=== PATIENT | male | born 1960 | race Caucasian/White ===

== ENCOUNTER 2022-10-13 12:31 | Outpatient (AMB) | payer OTHER, SELFPAY ==
[2022-10-13 12:37] VITALS: BP 132/60; PULSE 80; O2SAT 98
--- NOTE | 2022-10-13 12:37 | A.OFFPC_ITS ---
Vital Signs 10/13/22 12:37 BMI Reason not done Patient refused/unable BP 132/60 Blood Pressure Location Lt brachial Position Sitting Pulse 80 Pulse Source Pulse Oximeter Pulse Oximetry (%) 98 Oxygen Delivery Method Room Air Intake Visit Reasons: New patient-Diabetes Allergies No Known Allergies Allergy (Verified 10/13/22 13:02) Medication List - Last Reconciled 10/13/22 by BENNIE Gonzales cyclobenzaprine 5 mg PO Q8H PRN evjftsv-vgs-cntfo-tenof alafen [phone] mg (Genvoya) 1 tab PO DAILY insulin glargine (Lantus U-100 Insulin) 30 units subcut QAM insulin lispro (Humalog U-100 Insulin) 30 units subcut TID torsemide 40 mg PO DAILY Tobacco use date assessed: 10/13/22 Dental Screening Dental Screen Date: 10/13/22 Did you have a dental visit in the last 12 months?: No Did you have a dental problem in the last 6 months where you did not have access to dental care?: No Was dental information given to patient?: Patient has dentist HPI HPI Comments History of Present Illness Details 62-year-old male new patient presents today to establish care. Past medical history significant for diabetes mellitus, hypercholesteremia, HIV, cirrhossiss. Patient is a poor historian who reports today with his healthcare proxy the has some knowledge of his medical conditions. Healthcare proxy reports that patient has been in a wheelchair x1 year as he has history of a CVA with left-sided residual and developed bacteremia settled in his right hip joint, patient reports had hip surgery and right knee surgery to screen the infection out. and since admitted for that has unable to walk and has not been able that set up with physical therapist as he has not had a primary care provider. Patient was admitted at [facility], D/C Summary. Patient also wears a left leg AFO brace. Patient also reports been taking his Lantus 30 units in the morning and his short-acting 30 units in am and with meals, Humalog 30 units at night. Patient educated that Lantus is the long-acting insulin should be taking 30 units at night and Humalog is ordered 30 units t.i.d. with meals. Refills sent on this medication. Patient also reports on lactulose for liver cirrhosis however he does not know the dose of this or frequency. Patient advised to call office dose and frequency of lactulose of this can be sent to his pharmacy. 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 Pearl; Dr. Steinberg; records to be requested. Patient currently pain for hospital bed on a pocket, would like order for 1 to be sent to [facility] [place]. PAtient also requesting raised toilet seat with handles [facility] Medical History (Updated 10/13/22 @ 13:22 by BENNIE Gonzales) CVA (cerebral vascular accident) Surgical History (Updated 10/13/22 @ 13:10 by BENNIE Gonzales) H/O total hip arthroplasty Family History Mother No problems noted. Father No problems noted. Social History (Updated 10/13/22 @ 13:13 by BENNIE Gonzales) Housing: House Alcohol intake: never Patient Tobacco Use Status: Never used Tobacco e-Cigarette/Vaping Use: Never Used Second Hand Smoke Exposure: No Current occupational status: disabled Cognitive needs: No Hearing needs: No Vision needs: Yes Questionnaire PHQ-9 Over the last 2 weeks, how often have you been bothered by any of the following problems? 1. Little interest or pleasure in doing things: not at all 2. Feeling down, depressed, or hopeless: not at all 3. Trouble falling or staying asleep, or sleeping too much: not at all 4. Feeling tired or having little energy: not at all 5. Poor appetite or overeating: not at all 6. Feeling bad about yourself - or that you are a failure or have let yourself or your family down: not at all 7. Trouble concentrating on things, such as reading the newspaper or watching television: not at all 8. Moving or speaking so slowly that other people could have noticed. Or the opposite - being so fidgety or restless that you have been moving around a lot more than usual: not at all 9. Thoughts that you would be better off or of hurting yourself in some way: not at all Total score: 0 Depression Screening Interpretation: Negative Source: Developed by Drs. Ishan Peoples, Alexa Prakash, Gerardo Wahl and colleagues, with an educational jason from [employer]. Thrive Questionnaire Date Thrive assessed: 10/13/22 I am a: Patient What is your living situation today?: I have a steady place to live Within the past 12 months, did the food you bought not last and you didn't have the money to get more?: Never true Within the past 12 months, did you worry whether your food would run out before you got money to buy more?: Never true Do you have trouble paying for medicines?: No Do you have trouble getting transportation to medical appointments?: No Do you have trouble paying your heating and electricity bill?: No Do you have trouble taking care of your child, family member or friend?: No Do you have trouble with day-to-day activities such as bathing, preparing meals, shopping, managing finances, etc.?: No Are you currently unemployed and looking for a job?: No Are you interested in more education?: No Currently or been in a relationship where the following occur: no concerns reported AUDIT C Alcohol Use Questionnaire (AUDIT-C) 1. How often do you have a drink containing alcohol?: Never 2. How many drinks containing alcohol do you have on a typical day when you are drinking?: 1 or 2 3. How often do you have six or more drinks on one occasion?: Never Total Score: 0 SEPIDEH-7 AMB Questionnaire SEPIDEH-7 Date SEPIDEH - 7 assessed: 10/13/22 Feeling nervous, anxious, or on edge: 1 = Several days Not being able to stop or control worryin = Not at all Worrying too much about different things: 0 = Not at all Trouble relaxin = Not at all Being so restless that it is hard to sit still: 0 = Not at all Becoming easily annoyed or irritable: 0 = Not at all Feeling afraid as if something awful might happen: 0 = Not at all Total SEPIDEH-7 score (0-4 normal; 5-9 mild; 10-14 moderate; 15-21 severe): 1 Source: Developed by Alexa Amaya Kurt Kroenke and colleagues, with an educational jason from [employer]. Review of Systems Const Denies chills, Denies fatigue, Denies fever(s) and Denies poor appetite Eyes Denies no additional complaints ENT Reports Normal hearing present Card Denies chest pain, Denies syncope, Denies rapid heart rate and Denies dyspnea Resp Denies cough and Denies dyspnea GI Denies change in stool character, Denies constipation, Denies diarrhea, Denies nausea and Denies vomiting Denies dysuria, Denies urinary frequency and Denies urinary urgency Neuro Reports Normal hearing present, Denies confusion and Denies syncope Psych Denies confusion Endo Denies fatigue Physical exam (Primary Care) Vital Signs: Last Vital Signs Pulse 80 10/13/22 12:37 BP 132/60 10/13/22 12:37 Pulse Ox 98 10/13/22 12:37 Oxygen Delivery Method Room Air 10/13/22 12:37 Tobacco/Smoking Status: Tobacco use Status Tobacco use date assessed 10/13/22 10/13/22 12:51 Patient Tobacco Use Status Never used Tobacco 10/13/22 13:13 e-Cigarette/Vaping Use Never Used 10/13/22 13:13 PHQ-9: PHQ-9 Score PHQ-9: Total score 0 10/13/22 13:01 Depression Screening Interpretation: Negative Thrive Assessment: Date of Thrive Assessment Date Thrive assessed 10/13/22 10/13/22 12:51 Currently or been in a relationship where the following occur: no concerns reported Const General: No confusion Orientation/consciousness: No confusion HENMT Head: Yes normocephalic and Yes atraumatic Eyes Conjunctivae: conjunctivae normal Chest Chest palpation & inspection: normal inspection of the chest Resp Effort & Inspection: normal respiratory effort Auscultation: clear to auscultation bilaterally, no crackles, no rhonchi and no wheezes Cardio Rate: regular rate Rhythm: regular rhythm Heart sounds: S1 normal heart sound present and S2 normal heart sound present GI Inspection: Yes normal to inspection Neuro General: No confusion Cranial nerves: Yes Normal hearing present Extrem General: No edema Results AMB Hemoglobin A1c AMB Hemoglobin A1c 5.3 % Last Edit by Carmen Phoenix CMA on 10/13/22 13 :01 Results Reviewed Results Reviewed: Laboratory Last Values Hgb A1c (Clinic) 5.3 % (4.0-6.0) 10/13/22 13:01 Assessment and Plan Assessment & Plan (1) HIV disease: Code(s): B20 - Human immunodeficiency virus [HIV] disease Plan: Continue on Genvoya. (2) Cirrhosis: Code(s): K74.60 - Unspecified cirrhosis of liver Plan: Patient to call office with lactulose dose and frequency for refill to be sent to his pharmacy. (3) Hypercholesteremia: Code(s): E78.00 - Pure hypercholesterolemia, unspecified Plan: Fasting lipid panel order. Patient reports being on a statin in the past. (4) Diabetes mellitus: Code(s): E11.9 - Type 2 diabetes mellitus without complications Plan: Patient advised to take Humalog 30 units t.i.d. with meals and Lantus 30 units at night. Fasting glucose and hemoglobin A1c ordered. Plan Follow-up in 2 months. Orders: Orders Comprehensive [place]. Panel Fast Today E11.9 - Type 2 diabetes mellitus without complications Hemoglobin A1c Today E11.9 - Type 2 diabetes mellitus without complications Lipid Panel Today Z13.220 - Encounter for screening for lipoid disorders TSH reflex Free T4 Today Z13.29 - Encounter for screening for other suspected endocrine disorder Complete Blood Count Auto Diff Today Z13.0 - Encounter for screening for diseases of the blood and blood-forming organs and certain disorders involving the immune mechanism AMB Hemoglobin A1c Today Z13.9 - Encounter for screening, unspecified Medications: New insulin glargine (Lantus U-100 Insulin) 30 units (0.3 mL) subcut QAM 10 mL 0RF insulin lispro (Humalog U-100 Insulin) 30 units (0.3 mL) subcut TID 15 mL 0RF torsemide 40 mg (2 x 20 mg) PO DAILY 60 tabs 0RF Coding Level of Care Code New Pt Level 4 (80357) Diagnoses HIV disease B20 Cirrhosis K74.60 Hypercholesteremia E78.00 Diabetes mellitus E11.9
== END 2022-10-13 13:31 | disposition home or self-care (01) ==
PROVIDERS: PCP Nurse Practitioner Family; Visit Provider Nurse Practitioner Family
DX: B20 Human immunodeficiency virus [HIV] disease (principal); K74.60 Unspecified cirrhosis of liver; E11.9 Type 2 diabetes mellitus without complications; E78.00 Pure hypercholesterolemia, unspecified
CPT/HCPCS: 83036; 99204

== ENCOUNTER 2022-12-20 14:04 | Outpatient (AMB) | payer OTHER, SELFPAY ==
--- NOTE | 2022-12-20 14:05 | MHC.PC.OV ---
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 Allergies No Known Allergies Allergy (Verified 12/20/22 15:02) Medication List - Last Reconciled 12/20/22 by BENNIE Sheppard blood sugar diagnostic (Freestyle [employer]x strips) As directed blood-glucose meter (Freestyle [employer]x meter) As directed cyclobenzaprine 5 mg PO Q8H PRN ifjdwmo-hwf-hfoov-tenof alafen [phone] mg (Genvoya) 1 tab PO DAILY insulin glargine (Lantus U-100 Insulin) 15 units (0.15 mL) subcut QAM insulin lispro (Humalog KwikPen (U-100) Insulin) 15 units (0.15 mL) subcut TID lactulose 20 grams (30 mL) PO TID lancets (FreeStyle Lancets) As directed torsemide 40 mg (2 x 20 mg) PO DAILY Tobacco use date assessed: 12/20/22 HPI noncompliant, f/u rescheduled HPI Details Patient is a 62-year-old male who presents today for a routine follow-up. Patient of RADHA Terry, last visit 09/2022. Medical history significant for diabetes, hypercholesterolemia, HIV-followed by Dr. Terri HARRIS in [place] - reports recently had blood work done - will request records, cirrhosis-not always compliant with lactulose-reports lactulose sometime causes abdominal cramping-does not see GI-will refer to GI, history of CVA with left-sided weakness, chronic right hip pain - reports taking jrsy-kkq-fuvwdnu ibuprofen with minimal improvement. Patient not sure exactly what medications he takes, encouraged patient to check his home medications and then call office to update medication list. Does not check blood sugars at home, encouraged to monitor blood sugars at home periodically. Reports intermittent dry cough for the past 2 months which is not improving, did not try anything for this cough. 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 [facility] Medical History CVA (cerebral vascular accident) Surgical History H/O total hip arthroplasty Family History Mother No problems noted. Father No problems noted. Social History Housing: House Alcohol intake: never Patient Tobacco Use Status: Never used Tobacco e-Cigarette/Vaping Use: Never Used Second Hand Smoke Exposure: No Current occupational status: disabled Cognitive needs: No Hearing needs: No Vision needs: Yes Questionnaire Thrive Questionnaire Date Thrive assessed: 10/13/22 AUDIT C Alcohol Use Questionnaire (AUDIT-C) 1. How often do you have a drink containing alcohol?: Never 2. How many drinks containing alcohol do you have on a typical day when you are drinking?: 1 or 2 3. How often do you have six or more drinks on one occasion?: Never Total Score: 0 SEPIDEH-7 AMB Questionnaire SEPIDEH-7 Date SEPIDEH - 7 assessed: 10/13/22 Source: Developed by Drs. Ishan Peoples, Alexa Prakash, Gerardo Wahl and colleagues, with an educational jason from [employer]. Review of Systems Const Denies body aches, Denies chills, Denies fever(s) and Denies headache(s) ENT Denies dizziness, Denies otalgia, Denies headache(s), Denies nasal discharge, Denies sinus pain and Denies sore throat Card Denies chest pain, Denies edema, Denies lightheadedness and Denies dyspnea Resp Reports cough, Denies dyspnea and Denies wheezing GI Reports as per HPI, Denies abdominal pain, Denies constipation, Denies diarrhea, Denies nausea and Denies vomiting Denies dysuria Musc Denies myalgias Skin/Breast Denies rash Neuro Denies dizziness and Denies headache(s) Aller/Immun Denies wheezing Physical exam (Primary Care) Vital Signs: Last Vital Signs Pulse 86 12/20/22 14:06 BP 132/60 12/20/22 14:06 Pulse Ox 98 12/20/22 14:06 Oxygen Delivery Method Room Air 12/20/22 14:06 Tobacco/Smoking Status: Tobacco use Status Tobacco use date assessed 12/20/22 12/20/22 14:06 Patient Tobacco Use Status Never used Tobacco 12/20/22 14:06 e-Cigarette/Vaping Use Never Used 12/20/22 14:06 Thrive Assessment: Date of Thrive Assessment Date Thrive assessed 10/13/22 12/20/22 14:06 Const General: cooperative and no acute distress Orientation/consciousness: patient oriented x3 HENMT Head: Yes normocephalic and Yes atraumatic Face and sinus: Yes sinuses nontender Mouth: oropharynx normal and moist mucous membranes Throat: Yes posterior oropharynx normal Eyes General: appearance normal, both eyes and all related structures Neck Neck: Yes normal visual inspection and Yes full ROM Resp Effort & Inspection: normal respiratory effort and able to speak in complete sentences Auscultation: clear to auscultation bilaterally, no crackles, no rales, no rhonchi and no wheezes Cardio Rate: regular rate Rhythm: regular rhythm Heart sounds: S1 normal heart sound present and S2 normal heart sound present GI Palpation (GI): Soft to palpation, not firm, nontender, no guarding, not rigid and no hepatosplenomegaly Auscultation: normal bowel sounds Skin General skin exam: no rashes or lesions noted Neuro Other: Left-sided hemiplegia General: patient oriented x3 Extrem Other: LLE AFO brace General: No edema Assessment and Plan Assessment & Plan (1) Cough: Code(s): R05.9 - Cough, unspecified Plan: Lungs are clear Start benzonatate t.i.d. p.r.n. Notify office if no improvement after finishing treatment (2) Right hip pain: Code(s): M25.551 - Pain in right hip Plan: Will obtain x-ray Orthopedic referral Refill sent on cyclobenzaprine 5 mg every 8 hours p.r.n.-educated about drowsiness Patient also takes nolw-ggp-pmjgdgq ibuprofen p.r.n. he can take 400 mg every 8 hours as needed (3) Cirrhosis: Code(s): K74.60 - Unspecified cirrhosis of liver Plan: Encouraged compliance with lactulose GI referral for an evaluation and treatment (4) HIV disease: Code(s): B20 - Human immunodeficiency virus [HIV] disease Plan: Followed by infectious disease doctor Terri - patient reports he recently did have blood work done, will request On Genvoya (5) Hypercholesteremia: Code(s): E78.00 - Pure hypercholesterolemia, unspecified Plan: Patient reports that he is on cholesterol medication, does not remember the name, patient is to call with cholesterol medication name and dosage Patient is to complete blood work (6) Diabetes mellitus: Code(s): E11.9 - Type 2 diabetes mellitus without complications Plan: A1c 5.3 Patient reports that he is compliant with current insulins Lantus 15 units in the morning and lispro 15 units t.i.d. Encouraged to monitor blood sugars at home Low carbohydrate diet Plan Follow-up with PCP in 3 months or sooner as needed Orders: Orders Am[place]ia Today K74.60 - Unspecified cirrhosis of liver XR hip RT min 2V Today M25.551 - Pain in right hip Referrals Gastroenterology Referral K74.60 - Unspecified cirrhosis of liver Orthopedics Referral M25.551 - Pain in right hip Medications: New cyclobenzaprine 5 mg PO Q8H PRN 30 tabs 0RF muscle spasm M25.551 - Pain in right hip benzonatate 100 mg PO TID PRN 21 caps 0RF cough R05.9 - Cough, unspecified Coding Level of Care Code Est Pt Level 4 (08373) Diagnoses Cough R05.9 Right hip pain M25.551 Cirrhosis K74.60 HIV disease B20 Hypercholesteremia E78.00 Diabetes mellitus E11.9
[2022-12-20 14:06] VITALS: BP 132/60; PULSE 86; O2SAT 98
== END 2022-12-20 15:25 | disposition home or self-care (01) ==
PROVIDERS: PCP Nurse Practitioner Family; Visit Provider Nurse Practitioner Family
DX: K74.60 Unspecified cirrhosis of liver (principal); B20 Human immunodeficiency virus [HIV] disease; E78.00 Pure hypercholesterolemia, unspecified; E11.9 Type 2 diabetes mellitus without complications
CPT/HCPCS: 99214

== ENCOUNTER 2023-01-03 08:02 | Outpatient (REF) | payer OTHER, SELFPAY | END 2023-01-03 08:03 | disposition home or self-care (01) | LOC: HO.HOSX 08:02 | PROVIDERS: Visit Provider Orthopaedic Surgery | DX: Z13.89 Encounter for screening for other disorder (principal) ==

== ENCOUNTER 2023-01-03 13:23 | Outpatient (AMB) | payer OTHER, SELFPAY ==
--- NOTE | 2023-01-03 13:34 | MHC.OFFVIS ---
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 Patient reports that he has had pain in the right hip for about 1 year now. he explains that he had surgery in the right hip. This surgery was an I&D to clear out an infoection in the hip. He explains that he has pain in the lateral aspect of the right hip , this pain is described at a burning pain the radiates down the leg. No hx of back pain.. The patient states that he did suffer a fracture to his right hip which was surgically treated by Dr. Bacon from [facility]. He also underwent left total hip replacement surgery by Dr. Sutton from [facility] in [place]. The patient has chronic weakness on his left side after suffering from a cerebrovascular accident. Patient states that prior to his right hip infection he was able to get around with a cane. At this point the patient's right hip pain limits his mobility. He spends most of his time in a wheelchair. Allergies No Known Allergies Allergy (Verified 12/20/22 15:02) Medication List - Last Reconciled 01/03/23 by Rashid Farias MD benzonatate 100 mg PO TID PRN blood sugar diagnostic (Freestyle [employer] strips) As directed blood-glucose meter (Freestyle [employer] meter) As directed cyclobenzaprine 5 mg PO Q8H PRN cyjtjkl-wta-hybcu-tenof alafen [phone] mg (Genvoya) 1 tab PO DAILY insulin glargine (Lantus U-100 Insulin) 15 units (0.15 mL) subcut QAM insulin lispro (Humalog KwikPen (U-100) Insulin) 15 units (0.15 mL) subcut TID lactulose 20 grams (30 mL) PO TID lancets (FreeStyle Lancets) As directed torsemide 40 mg (2 x 20 mg) PO DAILY PFSH Medical History CVA (cerebral vascular accident) Surgical History H/O total hip arthroplasty Family History Mother No problems noted. Father No problems noted. Social History Housing: House Alcohol intake: never Patient Tobacco Use Status: Never used Tobacco e-Cigarette/Vaping Use: Never Used Second Hand Smoke Exposure: No Current occupational status: disabled Cognitive needs: No Hearing needs: No Vision needs: Yes Physical Exam Extrem Other: Right hip examination shows decreased range of motion when compared to his left hip, pain with range of motion Assessment & Plan Assessment & Plan (1) Right hip pain: Code(s): M25.551 - Pain in right hip Plan: Mr. 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 I had a lengthy discussion with the patient regarding the treatment options. I am not sure that the patient is a surgical candidate because of his multiple medical problems and history of infection. I did recommend that he follow-up with Dr. Sutton from bring him in [facility] in [place] or with Dr. Papito Ayala from [facility] in [place] to get further information regarding his surgical treatment options. The patient will follow-up as instructed. Feel free to call me at any time should questions regarding his orthopedic management arise. Orders: Orders XR hip RT min 2V Today M25.551 - Pain in right hip Coding Level of Care Code New Pt Level 2 (72400) Diagnoses Right hip pain M25.551
== END 2023-01-03 14:00 | disposition home or self-care (01) ==
PROVIDERS: PCP Nurse Practitioner Family; Visit Provider Orthopaedic Surgery
DX: M25.551 Pain in right hip (principal)
CPT/HCPCS: 99202

== ENCOUNTER 2023-07-11 09:52 | Outpatient (AMB) | payer OTHER, SELFPAY ==
--- NOTE | 2023-07-11 09:57 | MHC.PC.OV ---
Vital Signs 07/11/23 09:59 Height 6 ft 1 in Weight 198 lb BMI 26.1 BP 130/64 Blood Pressure Location Rt brachial Position Sitting Pulse 59 Pulse Source Pulse Oximeter Pulse Oximetry (%) 96 Oxygen Delivery Method Room Air Intake Visit Reasons: Meds, Est Care Intake Note: Patient is here to follow up on med review, DM. Request script for catheter, hospital bed, and power wheelchair. Automotive Teacher Required: No Desktop Manager: Present Accompanied by: Friend Allergies No Known Allergies Allergy (Verified 07/11/23 13:21) Medication List - Last Reconciled 07/11/23 by Alejandro Mckeon MD benzonatate 100 mg PO TID PRN blood sugar diagnostic (Freestyle [employer] strips) As directed blood-glucose meter (Freestyle Insu[employer]x meter) As directed cyclobenzaprine 5 mg PO Q8H PRN uvtijkw-txz-uhgtr-tenof alafen [phone] mg (Genvoya) 1 tab PO DAILY insulin glargine (Lantus U-100 Insulin) 15 units (0.15 mL) subcut QAM insulin lispro (Humalog KwikPen (U-100) Insulin) 15 units (0.15 mL) subcut TID lactulose 20 grams (30 mL) PO TID lancets (FreeStyle Lancets) As directed pen needle, diabetic (BD Alicia 2nd Gen Pen Needle) As directed torsemide 40 mg (2 x 20 mg) PO DAILY Tobacco use date assessed: 07/11/23 Dental Screening Dental Screen Date: 07/11/23 Did you have a dental visit in the last 12 months?: No Did you have a dental problem in the last 6 months where you did not have access to dental care?: No Was dental information given to patient?: No (Dentures) HPI Meds, Est Care HPI Details 63-year-old male presents to the office to discuss his medical issues. I am assuming his care as his provider has left the practice. Patient is wheelchair-bound for the past 2 years. He suffered a devastating stroke in 1999 10. Two years ago he developed a right hip infection leaving him with difficulty ambulating. He now needs help with all activities of daily living. Patient uses a wheelchair to ambulate is now requesting a power scooter. He is also requesting a hospital bed. Patient is HIV positive and follows up regularly with infectious disease provider in [place]. Is a diabetic and insulin requiring. Blood sugars are in good control. Requesting a refill on his medications. Patient does not smoke or use alcohol. [facility] Medical History (Updated 07/11/23 @ 13:28 by Alejandro Mckeon MD) Diabetes mellitus Hypercholesteremia HIV disease Cirrhosis CVA (cerebral vascular accident) Surgical History H/O total hip arthroplasty Family History Mother No problems noted. Father No problems noted. Social History Housing: House Alcohol intake: never Patient Tobacco Use Status: Never used Tobacco e-Cigarette/Vaping Use: Never Used Second Hand Smoke Exposure: No service: No Current occupational status: disabled Cognitive needs: Yes (wheelchair) Hearing needs: No Vision needs: Yes Questionnaire PHQ-9 Over the last 2 weeks, how often have you been bothered by any of the following problems? 1. Little interest or pleasure in doing things: not at all 2. Feeling down, depressed, or hopeless: not at all 3. Trouble falling or staying asleep, or sleeping too much: not at all 4. Feeling tired or having little energy: not at all 5. Poor appetite or overeating: not at all 6. Feeling bad about yourself - or that you are a failure or have let yourself or your family down: not at all 7. Trouble concentrating on things, such as reading the newspaper or watching television: not at all 8. Moving or speaking so slowly that other people could have noticed. Or the opposite - being so fidgety or restless that you have been moving around a lot more than usual: not at all 9. Thoughts that you would be better off or of hurting yourself in some way: not at all Total score: 0 Depression Screening Interpretation: Negative Depression Screening Done: Yes Source: Developed by Drs. Ishan Peoples, Alexa Prakash, Gerardo Wahl and colleagues, with an educational jason from [employer]. Thrive Questionnaire Date Thrive assessed: 07/11/23 I am a: Patient What is your living situation today?: I have a steady place to live Within the past 12 months, did the food you bought not last and you didn't have the money to get more?: Never true Within the past 12 months, did you worry whether your food would run out before you got money to buy more?: Never true Do you have trouble paying for medicines?: No Do you have trouble getting transportation to medical appointments?: No Do you have trouble paying your heating and electricity bill?: No Do you have trouble taking care of your child, family member or friend?: No Do you have trouble with day-to-day activities such as bathing, preparing meals, shopping, managing finances, etc.?: No Are you currently unemployed and looking for a job?: No Are you interested in more education?: No Currently or been in a relationship where the following occur: no concerns reported THRIVE Score: 0 AUDIT C Alcohol Use Questionnaire (AUDIT-C) 1. How often do you have a drink containing alcohol?: Never 2. How many drinks containing alcohol do you have on a typical day when you are drinking?: 1 or 2 3. How often do you have six or more drinks on one occasion?: Never Total Score: 0 SEPIDEH-7 AMB Questionnaire SEPIDEH-7 Date SEPIDEH - 7 assessed: 07/11/23 Feeling nervous, anxious, or on edge: 0 = Not at all Not being able to stop or control worryin = Not at all Worrying too much about different things: 0 = Not at all Trouble relaxin = Not at all Being so restless that it is hard to sit still: 0 = Not at all Becoming easily annoyed or irritable: 0 = Not at all Feeling afraid as if something awful might happen: 0 = Not at all Total SEPIDEH-7 score (0-4 normal; 5-9 mild; 10-14 moderate; 15-21 severe): 0 Source: Developed by Drs. Ishan Peoples, Alexa Prakash, Gerardo Wahl and colleagues, with an educational jason from [employer]. Physical exam (Primary Care) Vital Signs: Last Vital Signs Pulse 59 07/11/23 09:59 BP 130/64 07/11/23 09:59 Pulse Ox 96 07/11/23 09:59 Oxygen Delivery Method Room Air 07/11/23 09:59 Care Plan Goal for BP management: Blood pressure is stable. Continue current medications. BMI result Body Mass Index 26.1 Tobacco/Smoking Status: Tobacco use Status Tobacco use date assessed 07/11/23 07/11/23 10:14 Patient Tobacco Use Status Never used Tobacco 07/11/23 10:14 e-Cigarette/Vaping Use Never Used 07/11/23 10:14 PHQ-9: PHQ-9 Score PHQ-9: Total score 0 07/11/23 10:24 Depression Screening Interpretation: Negative Thrive Assessment: Date of Thrive Assessment Date Thrive assessed 07/11/23 07/11/23 10:14 Currently or been in a relationship where the following occur: no concerns reported Advance Care Planning discussion: Exists, not on file Date of discussion: 07/11/23 Who was present: Patient along with his healthcare proxy Forms completed: Health Care Proxy Time spent: 1-15 minutes, not on file Actual minutes spent: 5 Const General: cooperative, healthy appearing and comfortable Nutritional Appearance: average body habitus and well nourished Orientation/consciousness: patient oriented x3 Limitations: wheelchair and other limitations (Unable to use left arm and left leg) HENMT Head: Yes normal to inspection Ears: hearing grossly normal bilaterally General nose exam: Normal external nose present Mouth: Normal oral and palatal mucosa present Eyes General: appearance normal, both eyes and all related structures Pupils: Equal, round and reactive pupils present Chest Chest palpation & inspection: normal inspection of the chest Resp Effort & Inspection: normal respiratory effort Cardio Jugular venous distension: no JVD Palpation: normal PMI Rate: regular rate Rhythm: regular rhythm Heart sounds: S1 normal heart sound present and S2 normal heart sound present Neuro General: patient oriented x3 Cranial nerves: Yes Equal, round and reactive pupils present Extrem Other: Left upper extremity, fixed flexion position at the elbow. Left leg has a brace. Results AMB Hemoglobin A1c AMB Hemoglobin A1c 7.1 % Last Edit by HAL Malik on 07/11/23 10:25 Results Reviewed Results Reviewed: Laboratory Last Values Hgb A1c (Clinic) 7.1 % (4.0-6.0) H 07/11/23 09:56 Assessment and Plan Assessment & Plan (1) CVA (cerebral vascular accident): Comment: 2000 Code(s): I63.9 - Cerebral infarction, unspecified Plan: Hospital bed has been approved. All necessary forms will be filled out. I have agreed that he needs a motorized scooter for increased and improve mobility. Patient has textile finisher who helps him with all activities of daily living. (2) Cirrhosis: Code(s): K74.60 - Unspecified cirrhosis of liver Plan: Blood work has been ordered. Continue torsemide at current dosage. (3) HIV disease: Code(s): B20 - Human immunodeficiency virus [HIV] disease Plan: Continue care from Infectious Disease. (4) Hypercholesteremia: Code(s): E78.00 - Pure hypercholesterolemia, unspecified Plan: Will call with the results of the blood work. (5) Diabetes mellitus: Code(s): E11.9 - Type 2 diabetes mellitus without complications Plan: A1c is 7.1. Continue insulin at same dosage. I encouraged the patient to try to use the continues glucose monitor. Orders: Orders AMB Hemoglobin A1c Today E11.9 - Type 2 diabetes mellitus without complications Medications: Refilled insulin lispro (Humalog KwikPen (U-100) Insulin) 15 units (0.15 mL) subcut TID 15 mL 0RF E11.9 - Type 2 diabetes mellitus without complications Coding Level of Care Code Est Pt Level 4 (73914) Diagnoses CVA (cerebral vascular accident) I63.9 Cirrhosis K74.60 HIV disease B20 Hypercholesteremia E78.00 Diabetes mellitus E11.9 Additional Codes Vital Signs *Quality* - Advance Care Planning discussion: Exists, not on file ([id number]) Vital Signs *Quality* - Time spent: 1-15 minutes, not on file ([id number])
[2023-07-11 09:59] VITALS: BP 130/64; PULSE 59; O2SAT 96; BMI 26.1
== END 2023-07-11 10:41 | disposition home or self-care (01) ==
PROVIDERS: PCP Internal Medicine; Visit Provider Internal Medicine
DX: K74.60 Unspecified cirrhosis of liver (principal); B20 Human immunodeficiency virus [HIV] disease; E11.9 Type 2 diabetes mellitus without complications; Z00.00 Encounter for general adult medical examination without abnormal findings; Z86.73 Personal history of transient ischemic attack (TIA), and cerebral infarction without residual deficits; E78.00 Pure hypercholesterolemia, unspecified
CPT/HCPCS: 1124F; 83036; 99214

== ENCOUNTER 2023-07-21 10:44 | Outpatient (REF) | payer OTHER, SELFPAY ==
[2023-07-21 11:44] LABS: Hematocrit 38.8 % (42.0-52.0); Mean Corpuscular HGB Conc 36.1 g/dl (31.0-36.0); Red Blood Count 4.51 X10*6/uL (4.60-5.80); Red Cell Distribution Width 14.4 % (11.0-16.0); White Blood Count 3.4 X10*3/uL (4.8-10.8)
[2023-07-21 11:51] LABS: Estimated Average Glucose 154 mg/dL
[2023-07-21 12:23] LABS: Mean Platelet Volume 9.5 fL (9.4-12.4); Platelet Count 89 X10*3/uL (160-400)
[2023-07-21 12:44] LABS: Alanine Aminotransferase 15 U/L (0-40); Albumin Level 3.7 g/dL (3.5-5.0); Alkaline Phosphatase 62 U/L (39-117); Anion Gap 9 (12-20); Aspartate Amino Transferase 24 U/L (5-37); Bilirubin Direct 0.4 mg/dL (0.0-0.5); Bilirubin Total 1.2 mg/dL (0.0-1.0); Blood Urea Nitrogen 13 mg/dL (9-16); Calcium 9.1 mg/dL (8.4-10.2); Carbon Dioxide 27 mmol/L (22-29); Chloride 108 mmol/L (96-108); Cholesterol 144 mg/dL (<200); Estimated Glomerular Filt Rate > 60; Glucose Random 147 mg/dL (60-115); HDL Cholesterol 41 mg/dL (>40); LDL Cholesterol Calculated 90 mg/dL (<100); Potassium 3.9 mmol/L (3.3-5.1); Sodium 140 mmol/L (135-145); Triglycerides 68 mg/dL (<150)
== END 2023-07-21 10:45 | disposition home or self-care (01) ==
LOC: HO.LAB 10:44
PROVIDERS: PCP Internal Medicine; Visit Provider Internal Medicine
DX: E11.9 Type 2 diabetes mellitus without complications (principal)
CPT/HCPCS: 36415; 80048; 80061; 80076; 83036; 84443; 85027

== ENCOUNTER 2023-11-14 08:19 | Outpatient (AMB) | payer OTHER, SELFPAY ==
--- NOTE | 2023-11-14 08:28 | A.OFFPC_ITS ---
Vital Signs 11/14/23 08:29 Height 6 ft 1 in Weight 189 lb BMI 24.9 BP 100/50 L Blood Pressure Location Rt brachial Position Sitting Pulse 80 Pulse Source Pulse Oximeter Pulse Oximetry (%) 99 Oxygen Delivery Method Room Air Intake Visit Reasons: Discharge [facility] 11/01 R hip replacement Intake Note: Patient is here for hospital discharge follow up. Patient was discharged from [facility] on 11/08/23. Complaint of dry coughing. Polysomnography Technician Required: No Cement Truck Driver: Present Accompanied by: Friend Allergies No Known Allergies Allergy (Verified 11/14/23 08:29) Tobacco use date assessed: 11/14/23 Dental Screening Dental Screen Date: 07/11/23 HPI HPI Comments History of Present Illness Details 63 y/o male patient who presents to the clinic for SNF discharge. He was admitted at [facility] on 10/21/23 after he had Right THR. He was discharged home from [facility] on 11/02/23. Today c/o productive Cough since the discharge. Denies Fevers, chills, nausea or vomiting. He does receive PT at home and waiting on OT. He also has VNA. Pt asking for status on Parking Decal and wheelchair paperworks. Patient also asking for Pravastatin refill. [facility] Medical History (Updated 11/14/23 @ 09:04 by Ronna Odonnell NP) Diabetes mellitus Hypercholesteremia HIV disease Cirrhosis CVA (cerebral vascular accident) Surgical History (Updated 11/14/23 @ 08:38 by HAL Malik) History of right hip replacement H/O total hip arthroplasty Family History Mother No problems noted. Father No problems noted. Social History Housing: House Alcohol intake: never Patient Tobacco Use Status: Never used Tobacco e-Cigarette/Vaping Use: Never Used Second Hand Smoke Exposure: No service: No Current occupational status: disabled Cognitive needs: Yes (wheelchair) Hearing needs: No Vision needs: Yes Questionnaire Thrive Questionnaire Date Thrive assessed: 07/11/23 SEPIDEH-7 AMB Questionnaire SEPIDEH-7 Date SEPIDEH - 7 assessed: 07/11/23 Source: Developed by Drs. Ishan L. Alexa Peoples, Gerardo Wahl and colleagues, with an educational jason from [employer]. Review of Systems Const All systems reviewed & are unremarkable except as noted in HPI and below Physical exam (Primary Care) Vital Signs: Last Vital Signs Pulse 80 11/14/23 08:29 BP 100/50 L 11/14/23 08:29 Pulse Ox 99 11/14/23 08:29 Oxygen Delivery Method Room Air 11/14/23 08:29 BMI result Body Mass Index 24.9 Tobacco/Smoking Status: Tobacco use Status Tobacco use date assessed 11/14/23 11/14/23 08:40 Patient Tobacco Use Status Never used Tobacco 11/14/23 08:40 e-Cigarette/Vaping Use Never Used 11/14/23 08:40 Thrive Assessment: Date of Thrive Assessment Date Thrive assessed 07/11/23 11/14/23 08:40 Const General: no acute distress Nutritional Appearance: overweight Orientation/consciousness: patient oriented x3 Limitations: ambulation with walker Resp Effort & Inspection: normal respiratory effort, able to speak in complete sentences, no audible wheezes and Actively coughing Quality: productive Auscultation: clear to auscultation bilaterally, no crackles, no rales, no rhonchi and no wheezes Cardio Heart sounds: S1 normal heart sound present and S2 normal heart sound present Neuro General: patient oriented x3 Assessment and Plan Assessment & Plan (1) Cough: Code(s): R05.9 - Cough, unspecified Qualifiers: Cough type: unspecified Qualified Code(s): R05.9 - Cough, unspecified Plan: OTC cough remedies RTC if cough worse. Lungs CTA (2) Status post right hip replacement: Code(s): Z96.641 - Presence of right artificial hip joint Plan: Continue f/u with PT F/u with PCP as scheduled. Medications: New pravastatin 40 mg PO BEDTIME 90 tabs 0RF E78.00 - Pure hypercholesterolemia, unspecified Refilled benzonatate 100 mg PO TID PRN 90 caps 0RF cough R05.9 - Cough, unspecified Coding Level of Care Code Est Pt Level 4 (26506) Diagnoses Cough, unspecified type R05.9 Cough type: unspecified Status post right hip replacement Z96.641 Time Spent (min) 20 Comment Spent reviewing hospital notes and Labs.
[2023-11-14 08:29] VITALS: BP 100/50; PULSE 80; O2SAT 99; BMI 24.9
== END 2023-11-14 09:00 | disposition home or self-care (01) ==
PROVIDERS: PCP Internal Medicine; Visit Provider Nurse Practitioner Family
DX: R05.9 Cough, unspecified (principal); Z96.641 Presence of right artificial hip joint

== ENCOUNTER → 2023-11-14 08:19 | Outpatient (BNVA) | payer OTHER, SELFPAY | PROVIDERS: PCP Internal Medicine; Visit Provider Nurse Practitioner Family | DX: R05.9 Cough, unspecified (principal); E78.00 Pure hypercholesterolemia, unspecified; Z96.641 Presence of right artificial hip joint ==

== ENCOUNTER 2024-01-02 13:11 | Outpatient (REF) | payer OTHER, SELFPAY ==
[2024-01-02 15:43] LABS: Alanine Aminotransferase 28 U/L (0-40); Albumin Level 3.6 g/dL (3.5-5.0); Alkaline Phosphatase 68 U/L (39-117); Anion Gap 11 (12-20); Aspartate Amino Transferase 60 U/L (5-37); Bilirubin Direct 0.2 mg/dL (0.0-0.5); Bilirubin Total 0.7 mg/dL (0.0-1.0); Blood Urea Nitrogen 11 mg/dL (9-16); Calcium 9.6 mg/dL (8.4-10.2); Carbon Dioxide 27 mmol/L (22-29); Chloride 107 mmol/L (96-108); Cholesterol 149 mg/dL (<200); Estimated Glomerular Filt Rate > 60; Glucose Random 149 mg/dL (60-115); HDL Cholesterol 37 mg/dL (>40); LDL Cholesterol Calculated 87 mg/dL (<100); Potassium 4.1 mmol/L (3.3-5.1); Sodium 141 mmol/L (135-145); Total Protein 6.9 g/dL (6.5-8.0); Triglycerides 125 mg/dL (<150)
[2024-01-02 16:00] LABS: Thyroid Stimulating Hormone 2.36 uIU/mL (0.32-4.0)
[2024-01-02 16:01] LABS: Estimated Average Glucose 105 mg/dL; Hemoglobin A1c % 5.3 % (<6.0)
== END 2024-01-02 13:12 | disposition home or self-care (01) ==
LOC: HO.LAB 13:11
PROVIDERS: PCP Internal Medicine; Visit Provider Internal Medicine
DX: E11.9 Type 2 diabetes mellitus without complications (principal); K74.60 Unspecified cirrhosis of liver; B20 Human immunodeficiency virus [HIV] disease; M25.551 Pain in right hip; Z86.73 Personal history of transient ischemic attack (TIA), and cerebral infarction without residual deficits
CPT/HCPCS: 36415; 80048; 80061; 80076; 83036; 84443

== ENCOUNTER 2024-01-02 13:11 | Outpatient (AMB) | payer OTHER, SELFPAY ==
--- NOTE | 2024-01-02 13:15 | A.OFFPC_ITS ---
Vital Signs 01/02/24 13:16 Height 6 ft 1 in Weight 188 lb BMI 24.8 BP 120/60 Blood Pressure Location Rt brachial Position Sitting Pulse 86 Pulse Source Pulse Oximeter Pulse Oximetry (%) 100 Oxygen Delivery Method Room Air Intake Visit Reasons: 3M follow up Intake Note: Patient is here to follow up on DM, CVA, Cirrhosis, Hypercholesterolemia. Investor Relations Manager Required: No Assembly Line Upholsterer: Present Accompanied by: Friend Allergies No Known Allergies Allergy (Verified 01/02/24 13:54) Medication List - Last Reconciled 01/02/24 by Alejandro Mckeon MD [3 in 1 drop arm commode As directed] benzonatate 100 mg PO TID PRN blood sugar diagnostic (Freestyle [employer]x strips) As directed blood-glucose meter (Freestyle [employer] meter) As directed cyclobenzaprine 5 mg PO DAILY PRN bazkqbk-zwg-ixqbd-tenof alafen [phone] mg (Genvoya) 1 tab PO DAILY [hospital bed As directed] insulin glargine (Lantus U-100 Insulin) 15 units (0.15 mL) subcut QAM insulin lispro (Humalog KwikPen (U-100) Insulin) 15 units (0.15 mL) subcut TID lactulose 20 grams (30 mL) PO TID lancets (FreeStyle Lancets) As directed [motorized scooter As directed] pen needle, diabetic (BD Alicia 2nd Gen Pen Needle) As directed pravastatin 40 mg PO BEDTIME pravastatin 40 mg PO DAILY torsemide 40 mg (2 x 20 mg) PO DAILY [Transfer bench As directed] Tobacco use date assessed: 01/02/24 Dental Screening Dental Screen Date: 07/11/23 HPI 3M follow up HPI Details 63-year-old male presents to the office to discuss his chronic medical conditions. He is accompanied by a male partner. Patient comes to the office in a wheelchair and the partner is pushing the wheelchair. Patient continues to be immobilized after the cerebrovascular accident. He needs assistance in transferring from the wheelchair to the bed, assistance while taking a shower or using the commode. He is able to eat by himself but unable to do any other activities of daily living. Patient is requesting a commode and a shower chair to help him be independent. Compliant with medications and has been checking his blood sugars regularly. Sleeping well. [facility] Medical History (Updated 11/14/23 @ 09:04 by Ronna Odonnell NP) Diabetes mellitus Hypercholesteremia HIV disease Cirrhosis CVA (cerebral vascular accident) Surgical History History of right hip replacement H/O total hip arthroplasty Family History Mother No problems noted. Father No problems noted. Social History Housing: House Alcohol intake: never Patient Tobacco Use Status: Never used Tobacco e-Cigarette/Vaping Use: Never Used Second Hand Smoke Exposure: No service: No Current occupational status: disabled Cognitive needs: Yes (wheelchair) Hearing needs: No Vision needs: Yes Questionnaire Thrive Questionnaire Date Thrive assessed: 07/11/23 SEPIDEH-7 AMB Questionnaire SEPIDEH-7 Date SEPIDEH - 7 assessed: 07/11/23 Source: Developed by Drs. Ishan Peoples, Alexa Prakash, Gerardo Wahl and colleagues, with an educational jason from [employer]. Physical exam (Primary Care) Vital Signs: Last Vital Signs Pulse 86 01/02/24 13:16 BP 120/60 01/02/24 13:16 Pulse Ox 100 01/02/24 13:16 Oxygen Delivery Method Room Air 01/02/24 13:16 BMI result Body Mass Index 24.8 Tobacco/Smoking Status: Tobacco use Status Tobacco use date assessed 01/02/24 01/02/24 13:27 Patient Tobacco Use Status Never used Tobacco 01/02/24 13:27 e-Cigarette/Vaping Use Never Used 01/02/24 13:27 Thrive Assessment: Date of Thrive Assessment Date Thrive assessed 07/11/23 01/02/24 13:27 Const Other: Alert and oriented in no acute distress. HENMT Head: Yes normal to inspection Eyes General: appearance normal, both eyes and all related structures Neck Other: No visible bruising bilaterally Chest Other: Bilateral breath sounds. No wheezing. Cardio Jugular venous distension: no JVD Palpation: normal PMI Rate: regular rate Rhythm: regular rhythm Heart sounds: S1 normal heart sound present and S2 normal heart sound present Neuro Other: Left-sided paresis with fixed flexion deformities. Results AMB Hemoglobin A1c AMB Hemoglobin A1c 5.4 % Last Edit by HAL Malik on 01/02/24 13:41 Results Reviewed Results Reviewed: Laboratory Last Values Hgb A1c (Clinic) 5.4 % (4.0-6.0) 01/02/24 13:15 Coding Level of Care Code Est Pt Level 4 (97638) Complex EM visit Add On G2211 Diagnoses Diabetes mellitus E11.9 Cirrhosis K74.60 HIV disease B20 CVA (cerebral vascular accident) I63.9 Assessment & Plan Assessment & Plan (1) Diabetes mellitus: Code(s): E11.9 - Type 2 diabetes mellitus without complications Category: Medical Plan: A1c is in range. Continue insulin at the current dosage. (2) Cirrhosis: Code(s): K74.60 - Unspecified cirrhosis of liver Category: Medical Plan: Condition is stable. Continue medications at current dosage. (3) HIV disease: Code(s): B20 - Human immunodeficiency virus [HIV] disease Category: Medical Plan: Patient has an upcoming appointment with the infectious disease provider. The appointment is scheduled for next month. Continue antivirals at same dosage. (4) CVA (cerebral vascular accident): Comment: 2000 Code(s): I63.9 - Cerebral infarction, unspecified Category: Medical Plan: Physical therapy has been requested to improve mobility. Orders: Orders AMB Hemoglobin A1c Today E11.9 - Type 2 diabetes mellitus without complications Medications: Refilled cyclobenzaprine 5 mg PO DAILY PRN 30 tabs 0RF muscle spasm M25.551 - Pain in right hip
[2024-01-02 13:16] VITALS: BP 120/60; PULSE 86; O2SAT 100; BMI 24.8
== END 2024-01-02 14:02 | disposition home or self-care (01) ==
PROVIDERS: PCP Internal Medicine; Visit Provider Internal Medicine
DX: E11.9 Type 2 diabetes mellitus without complications (principal); K74.60 Unspecified cirrhosis of liver; B20 Human immunodeficiency virus [HIV] disease; I63.9 Cerebral infarction, unspecified

== ENCOUNTER 2024-04-18 13:26 | Outpatient (AMB) | payer OTHER, SELFPAY ==
[2024-04-18 13:54] VITALS: BP 130/64; PULSE 79; O2SAT 98
--- NOTE | 2024-04-18 13:54 | A.OFFPC_ITS ---
Vital Signs 04/18/24 13:54 Height 6 ft 1 in BMI Reason not done Patient refused/unable BP 130/64 Blood Pressure Location Lt brachial Position Sitting Pulse 79 Pulse Source Pulse Oximeter Pulse Oximetry (%) 98 Oxygen Delivery Method Room Air Intake Visit Reasons: 3mth F/U Outside Plant Technician Required: No Accompanied by: Self / Same As Patient Allergies No Known Allergies Allergy (Verified 04/18/24 13:55) Tobacco use date assessed: 04/18/24 Dental Screening Dental Screen Date: 04/18/24 Did you have a dental visit in the last 12 months?: No Did you have a dental problem in the last 6 months where you did not have access to dental care?: No Was dental information given to patient?: No [facility] Medical History (Updated 11/14/23 @ 09:04 by Ronna Odonnell NP) Diabetes mellitus Hypercholesteremia HIV disease Cirrhosis CVA (cerebral vascular accident) Surgical History History of right hip replacement H/O total hip arthroplasty Family History Mother No problems noted. Father No problems noted. Social History Housing: House Alcohol intake: never Patient Tobacco Use Status: Never used Tobacco e-Cigarette/Vaping Use: Never Used Second Hand Smoke Exposure: No service: No Current occupational status: disabled Cognitive needs: Yes (wheelchair) Hearing needs: No Vision needs: Yes Questionnaire PHQ-9 Over the last 2 weeks, how often have you been bothered by any of the following problems? 1. Little interest or pleasure in doing things: not at all 2. Feeling down, depressed, or hopeless: not at all 3. Trouble falling or staying asleep, or sleeping too much: not at all 4. Feeling tired or having little energy: not at all 5. Poor appetite or overeating: not at all 6. Feeling bad about yourself - or that you are a failure or have let yourself or your family down: not at all 7. Trouble concentrating on things, such as reading the newspaper or watching television: not at all 8. Moving or speaking so slowly that other people could have noticed. Or the opposite - being so fidgety or restless that you have been moving around a lot more than usual: not at all 9. Thoughts that you would be better off or of hurting yourself in some w ay: not at all Total score: 0 Depression Screening Interpretation: Negative Depression Screening Done: Yes Source: Developed by Drs. Ishan Peoples, Alexa Prakash, Gerardo Wahl and colleagues, with an educational jason from [employer]. Thrive Questionnaire Date Thrive assessed: 04/18/24 I am a: Patient What is your living situation today?: I have a steady place to live Within the past 12 months, did the food you bought not last and you didn't have the money to get more?: Never true Within the past 12 months, did you worry whether your food would run out before you got money to buy more?: Never true Do you have trouble paying for medicines?: No Do you have trouble getting transportation to medical appointments?: No Do you have trouble paying your heating and electricity bill?: No Do you have trouble taking care of your child, family member or friend?: No Do you have trouble with day-to-day activities such as bathing, preparing meals, shopping, managing finances, etc.?: No Are you currently unemployed and looking for a job?: No Are you interested in more education?: No Please select the resources that you would like help with: None Currently or been in a relationship where the following occur: No concerns reported THRIVE Score: 0 AUDIT C Alcohol Use Questionnaire (AUDIT-C) 1. How often do you have a drink containing alcohol?: Never 2. How many drinks containing alcohol do you have on a typical day when you are drinking?: 1 or 2 3. How often do you have six or more drinks on one occasion?: Never Total Score: 0 SEPIDEH-7 AMB Questionnaire SEPIDEH-7 Date SEPIDEH - 7 assessed: 04/18/24 Feeling nervous, anxious, or on edge: 0 = Not at all Not being able to stop or control worryin = Not at all Worrying too much about different things: 0 = Not at all Trouble relaxin = Not at all Being so restless that it is hard to sit still: 0 = Not at all Becoming easily annoyed or irritable: 0 = Not at all Feeling afraid as if something awful might happen: 0 = Not at all Total SEPIDEH-7 score (0-4 normal; 5-9 mild; 10-14 moderate; 15-21 severe): 0 Source: Developed by Drs. Ishan Peoples, Alexa Prakash, Gerardo Wahl and colleagues, with an educational jason from [employer]. Physical exam (Primary Care) Vital Signs: Last Vital Signs Pulse 79 04/18/24 13:54 BP 130/64 04/18/24 13:54 Pulse Ox 98 04/18/24 13:54 Oxygen Delivery Method Room Air 04/18/24 13:54 Tobacco/Smoking Status: Tobacco use Status Tobacco use date assessed 04/18/24 04/18/24 14:01 Patient Tobacco Use Status Never used Tobacco 04/18/24 14:01 e-Cigarette/Vaping Use Never Used 04/18/24 14:01 PHQ-9: PHQ-9 Score PHQ-9: Total score 0 04/18/24 14:01 Depression Screening Interpretation: Negative Thrive Assessment: Date of Thrive Assessment Date Thrive assessed 04/18/24 04/18/24 14:01 Currently or been in a relationship where the following occur: No concerns reported Coding Level of Care Code Est Pt Level 4 (32848) Complex EM visit Add On G2211 Diagnoses Diabetes mellitus E11.9 Cirrhosis K74.60 HIV disease B20 CVA (cerebral vascular accident) I63.9 Basal cell carcinoma of nose C44.311 Hordeolum externum right eye, unspecified eyelid H00.013 Assessment & Plan Assessment & Plan (1) Diabetes mellitus: Code(s): E11.9 - Type 2 diabetes mellitus without complications Category: Medical Plan: A1c ordered. Continue medications at same dosage (2) Cirrhosis: Code(s): K74.60 - Unspecified cirrhosis of liver Category: Medical Plan: Condition is stable. (3) HIV disease: Code(s): B20 - Human immunodeficiency virus [HIV] disease Category: Medical Plan: He follows up with infectious disease. Continue management as per them (4) CVA (cerebral vascular accident): Comment: 2000 Code(s): I63.9 - Cerebral infarction, unspecified Category: Medical Plan: Condition is stable (5) Basal cell carcinoma of nose: Code(s): C44.311 - Basal cell carcinoma of skin of nose Plan: Dermatology appt made (6) Hordeolum externum right eye, unspecified eyelid: Code(s): H00.013 - Hordeolum externum right eye, unspecified eyelid Plan: Erythromycin eye ointment prescribed. Orders: Orders Complete Blood Count no Diff Today B20 - Human immunodeficiency virus [HIV] disease, E11.9 - Type 2 diabetes mellitus without complications, I63.9 - Cerebral infarction, unspecified, K74.60 - Unspecified cirrhosis of liver Basic Metabolic Panel Today B20 - Human immunodeficiency virus [HIV] disease, E11.9 - Type 2 diabetes mellitus without complications, I63.9 - Cerebral infarction, unspecified, K74.60 - Unspecified cirrhosis of liver Liver Panel Today B20 - Human immunodeficiency virus [HIV] disease, E11.9 - Type 2 diabetes mellitus without complications, I63.9 - Cerebral infarction, unspecified, K74.60 - Unspecified cirrhosis of liver Hemoglobin A1c Today B20 - Human immunodeficiency virus [HIV] disease, E11.9 - Type 2 diabetes mellitus without complications, I63.9 - Cerebral infarction, unspecified, K74.60 - Unspecified cirrhosis of liver Lipid Panel Today B20 - Human immunodeficiency virus [HIV] disease, E11.9 - Type 2 diabetes mellitus without complications, I63.9 - Cerebral infarction, unspecified, K74.60 - Unspecified cirrhosis of liver Microalbumin, Random (w Creat) Today B20 - Human immunodeficiency virus [HIV] disease, E11.9 - Type 2 diabetes mellitus without complications, I63.9 - Cerebral infarction, unspecified, K74.60 - Unspecified cirrhosis of liver Thyroid Stimulating Hormone Today B20 - Human immunodeficiency virus [HIV] disease, E11.9 - Type 2 diabetes mellitus without complications, I63.9 - Cerebral infarction, unspecified, K74.60 - Unspecified cirrhosis of liver UA and rflx microscopic Today B20 - Human immunodeficiency virus [HIV] disease, E11.9 - Type 2 diabetes mellitus without complications, I63.9 - Cerebral infarction, unspecified, K74.60 - Unspecified cirrhosis of liver Referrals Cologuard Test Z12.11 - Encounter for screening for malignant neoplasm of colon Medications: New erythromycin 0.5 inches ophthalmic (eye) TID 1 g 0RF
--- OUTSIDE RECORDS SUMMARY | 2024-04-18 16:05 | XMS_ITS | Clinical Summary ---
Author Organization [facility] Address [address] [place] [address] Care Team Providers Care Nutritionist Public Health Name Role Phone Unavailable Primary Care Provider Unavailabl e Social History Tobacco Use Types Packs/Day Years Used Date Smoking Tobacco: Never Assessed Sex and Gender Information Value Date Recorded Sex Assigned at Not on file Gender Identity Not on file Sexual Orientation Not on file Plan of Treatment Not on file
--- OUTSIDE RECORDS SUMMARY | 2024-04-18 16:05 | XMS_ITS | Clinical Summary ---
Author Organization [facility] Address [address] [place] [address] Care Team Providers Care Food Or Baggage Handling Rampman Name Role Phone Unavailable Primary Care Provider Unavailabl e Social History Tobacco Use Types Packs/Day Years Used Date Smoking Tobacco: Never Assessed Sex and Gender Information Value Date Recorded Sex Assigned at Not on file Gender Identity Not on file Sexual Orientation Not on file Plan of Treatment Health Maintenance Due Date Last Done Comments Hepatitis C Virus Screening 1962 HIV Screening 06/23/1975 DTaP/Tdap/Td Vaccines (1 - Tdap) 1981 Pneumococcal Vaccines 50+ (1 of 1 - PCV) 2012 Zoster (Shingles) Vaccine (1 of 2) 2012 COVID-19 Vaccine ( - 2023-2 5 season) 2023 RSV Vaccine 60 years and old er and Patients (1 - 1-dose 75+ series) 2037 Hepatitis B Vaccines Aged Out No long er eligible based on patient's age to complete this topic Pneumococcal Vaccine: Pediat surya (0-5 Years) and At-Risk Patients (6 to 49 Years) Aged Out No longer eligible b ased on patient's age to complete this topic
--- OUTSIDE RECORDS SUMMARY | 2024-04-18 16:05 | XMS_ITS | Clinical Summary ---
Author Organization [facility], Address [address] [place] [address] [place] [address] Phone Care Team Providers Care College Intern Name Role Phone Naveen Aponte Primary Care Provider [phone] Allergies No known active allergies Medications bisacodyl (DULCOLAX) 10 MG suppository Insert 10 mg into the rectum 08/25/2021 Active Docusate Sodium (DSS) 100 MG capsule Take 100 mg by mouth 08/25/2021 Active polyethylene glycol (GLYCOLAX) 17 GM/SCOOP powder Take 17 g by mouth 08/25/2021 Active oxyCODONE (ROXICODONE) 5 MG immediate release tablet Take 5 mg by mouth 08/25/2021 Active pravastatin (PRAVACHOL) 40 MG tablet 11/05/2021 Active torsemide (DEMADEX) 20 MG tablet 10/17/2021 Active potassium chloride (KLOR-CON M20) 20 MEQ CR tablet 10/20/2021 Ac tive Genvoya 131-279-688-10 MG per tablet 10/21/2021 Activ e Active Problems Problem Noted Date Diagnosed Date Hemiparesis 11/10/2021 Hyperlipidemia 11/10/2021 Immunizations Name Administration Dates Next Due Hep A / Hep B 08/29/2012,03/25/2012,02/23/2012 ,06/07/2011 Influenza Whole 12/29/2010 Influenza, Unspecified 01/28/2019 Moderna SARS-COV-2 07/21/2020,06/23/2020 Pneumococcal Conjugate 03/21/2012 Pneumococcal Polysaccharide 06/12/2018, 1,02/21/2000 Td, Unspecified 04/01/2009 Tdap 03/01/2009 Family History Medical History Relation Comments Cancer Father Relation Status Comments Father Social History Tobacco Use Types Packs/Day Years Used Date Smoking Tobacco: Never Smokeless Tobacco: Never Tobacco Cessation:Counseling Given: Not Answered Alcohol Use Standard Drinks/Week Comments Not Currently 0 (1 standard drink = 0.6 oz pur e alcohol) Sex and Gender Information Value Date Recorded Sex Assigned at Not on file Legal Sex Male 3:18 PM EDT Gender Identity Not on file Sexual Orientation Not on file Plan of Treatment Health Maintenance Due Date Last Done Comments Colorectal Cancer Screening: Annual FOBT 06/23/2011 Colorectal Cancer Screening: Colonoscopy 06/23/2011 Colorectal Cancer Screening: Sigmoidoscopy 06/23/2011 Pneumococcal Vaccine: Pediat rics (0 to 5 Years) and At-Risk Patients (6 to 64 Years) (3 of 3 - PCV) 06/13/2019 06/12/2018, 03/21/2012, 12/17/2000, Additional history exists Influenza Vaccine (#1) 2023 01/28/2019, 2010 Hepatitis B Vaccine Completed 08/29/2012, 03/25/2012, 02/23/2012, Additional history exists Insurance [facility] MEDICARE Care Teams College Intern Relationship Specialty Start Date End Date Naveen Aponte [address] PCP - General Internal Medicine 09/01/21
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
--- OUTSIDE RECORDS SUMMARY | 2024-04-18 16:05 | XMS_ITS ---
Author Organization [facility] Address Unknown Allergies, Adverse Reactions, Alerts Substance Reaction Status Noted Date Resolved Date Vicodin active 08/25/2021 Codeine active 08/25/2021 Problems Problem Status Start Date End Date NONINFECTIVE GASTROENTERITIS AND COLITIS, UNSPECIFIED (Primary) (K52.9 - ICD-10-CM) RESOLVED 08/25/2021 02/16/2022 MUSCLE WEAKNESS (GENERALIZED) (M62.81 - ICD-10-CM) ACT AUDREY 08/25/2021 HEMIPLEGIA AND HEMIPARESIS F OLLOWING CEREBRAL INFARCTION AFFECTING LEFT NON-DOMINANT SIDE (I69.354 - ICD-10-CM) ACTIVE 08/25/2021 ENCOUNTER FOR OTHER ORTHOPED IC AFTERCARE (Z47.89 - ICD-10-CM) RESOLVED 08/25/2021 02/15/2022 OTHER ABNORMALITIES OF GAIT AND MOBILITY (R26.89 - ICD-10-CM) ACTIVE 08/25/2021 TRANSIENT ALTERATION OF AWARENESS (R40.4 - ICD-10-CM) ACTIVE 08/25/2021 HEPATIC FAILURE, UNSPECIFIED WITHOUT COMA (K72.90 - ICD-10-CM) ACTIVE 02/23/2022 OTHER PANCYTOPENIA (D61.818 - ICD-10-CM) ACTIVE 02/16/2022 OBESITY, UNSPECIFIED (E66.9 - ICD-10-CM) ACTIVE 02/16/2022 NONINFECTIVE GASTROENTERITIS AND COLITIS, UNSPECIFIED (K52.9 - ICD-10-CM) ACTIVE 02/16/2022 INFLUENZA DUE TO IDENTIFIED NOVEL INFLUENZA A VIRUS WITH OTHER RESPIRATORY MANIFESTATIONS (J09.X2 - ICD-10-CM) ACTIVE 02/16/2022 HYPERLIPIDEMIA, UNSPECIFIED (E78.5 - ICD-10-CM) ACTIVE 08/26/2021 TYPE 2 DIABETES MELLITUS WIT HOUT COMPLICATIONS (E11.9 - ICD-10-CM) ACTIVE 08/25/2021 ALCOHOLIC CIRRHOSIS OF LIVER WITHOUT ASCITES (K70.30 - ICD-10-CM) ACTIVE 08/25/2021 ASYMPTOMATIC HUMAN IMMUNODEF ICIENCY VIRUS [HIV] INFECTION STATUS (Z21 - ICD-10-CM) ACTIVE 08/25/2021 THROMBOCYTOPENIA, UNSPECIFIED (D69.6 - ICD-10-CM) ACTI VE 08/25/2021 ESOPHAGEAL VARICES WITH BLEEDING (I85.01 - ICD-10-CM) ACTIVE 08/25/2021 SEVERE SEPSIS WITHOUT SEPTIC SHOCK (R65.20 - ICD-10-CM) RESOLVED 08/25/2021 02/16/2022 BACTEREMIA (R78.81 - ICD-10-CM) RESOLVED 02/16/2022 DRUG INDUCED FEVER (R50.2 - ICD-10-CM) RESOLVED 02/15/2022 CELLULITIS, UNSPECIFIED (L03.90 - ICD-10-CM) RESOLVED 08/25/2021 02/15/2022 PYOGENIC ARTHRITIS, UNSPECIFIED (M00.9 - ICD-10-CM) RE SOLVED 08/25/2021 02/15/2022 ACUTE KIDNEY FAILURE, UNSPECIFIED (N17.9 - ICD-10-CM) RESOLVED 08/25/2021 02/15/2022 PASTEURELLOSIS (A28.0 - ICD-10-CM) RESOLVED 202102/15/[address] UG LEVEL MONITORING (Z51.81 - ICD-10-CM) RESOLVED 08/25/2021 02/15/2022 HUMAN IMMUNODEFICIENCY VIRUS [HIV] DISEASE (B20 - ICD-10-CM) ACTIVE 08/25/2021 Results * XRAY CHEST 1 VIEW Performed by: [facility] Component Value Range Date XRAY CHEST 1 VIEW XRAY CHEST 1 VIEWSee NoteFINDINGS: The heart is normal in size and configuration. The mediastinum is unremarkable. The lungs are clear, without mass, infiltrate, or effusion. No acute osseous abnormality is visualized. The PICC line tip is in the upper third of superior vena cava.CONCLUSION: No acute cardiopulmonary disease.ELECTRONICALLY SIGNED BY ALIYA BHAGAT D.O. 09/12/2021 10:16:59 PM EDT.Reason for Study: A41.9 SEPSIS, UNSPECIFIED ORGANISMPrincipal Result Direct Marketing Executive: ALIYA BHAGAT ([phone])Police Officer: SHANE ROACH (MFEARING)Manager Ems Police Officer: LE 09/12/2021 10:17 pm EDT Encounters Encounter Performer Performer Role Encounter Diagnoses Location Date Leave - [facility]) - [facility] 08/25/2021 06:31 pm EDT - 11/30/2021 10:51 am EDT Leave - [facility]) - [facility] 12/02/2021 01:15 pm EDT - 01/31/2022 12:05 pm EST Leave - [facility]) - [facility] 02/02/2022 03:24 pm EST - 02/15/2022 11:07 am EST Discharge - Discharged to home or self care - Home - Other [facility] 02/16/2022 05:31 pm EST - 03/17/2022 12:59 pm EST Reason For Referral Altered Mental Status Immunizations Vaccine Date Influenza SARS-COV-2 (COVID-19) 07/21/2020 12:00 a m EDT SARS-COV-2 (COVID-19) 06/23/2020 12:00 a m EDT SARS-COV-2 (COVID-19 BOOSTER) SARS-COV-2 (COVID-19 BOOSTER) 03/16/2021 12:00 am EST Social History
--- OUTSIDE RECORDS SUMMARY | 2024-04-18 16:05 | XMS_ITS ---
Author Organization [facility] Address Unknown Allergies, Adverse Reactions, Alerts Substance Reaction Status Noted Date Resolved Date HYDROcodone active 10/21/2023 Codeine active 10/21/2023 Problems Problem Status Start Date End Date AFTERCARE FOLLOWING JOINT RE PLACEMENT SURGERY (Primary) (Z47.1 - ICD-10-CM) ACTIVE 10/21/2023 UNILATERAL PRIMARY OSTEOARTH RITIS, RIGHT HIP (M16.11 - ICD-10-CM) ACTIVE 10/21/2023 ANEMIA, UNSPECIFIED (D64.9 - ICD-10-CM) ACTIVE 0 10/21/2023 ALCOHOL ABUSE, UNCOMPLICATED (F10.10 - ICD-10-CM) ACTI VE 10/21/2023 ALCOHOLIC CIRRHOSIS OF LIVER WITHOUT ASCITES (K70.30 - ICD-10-CM) ACTIVE 10/21/2023 HUMAN IMMUNODEFICIENCY VIRUS [HIV] DISEASE (B20 - ICD-10-CM) ACTIVE 10/21/2023 TYPE 2 DIABETES MELLITUS WIT H DIABETIC NEUROPATHY, UNSPECIFIED (E11.40 - ICD-10-CM) ACTIVE 10/21/2023 HEMIPLEGIA AND HEMIPARESIS F OLLOWING CEREBRAL INFARCTION AFFECTING LEFT NON-DOMINANT SIDE (I69.354 - ICD-10-CM) ACTIVE 10/20 OTHER HYPOTENSION (I95.89 - ICD-10-CM) ACTIVE ESOPHAGEAL VARICES WITHOUT BLEEDING (I85.00 - ICD-10-C M) ACTIVE 10/21/2023 PRESENCE OF RIGHT ARTIFICIAL HIP JOINT (Z96.641 - ICD-10-CM) ACTIVE 10/21/2023 Encounters Encounter Performer Performer Role Encounter Diagnoses Location Date Discharge - Discharged to home or self care - [facility] FERNAND[facility] - Private home/apt. with home health services [facility] 10/21/2023 03:30 pm EDT - 11/08/2023 01:41 pm EDT Immunizations Vaccine Date TB 2 Step Mantoux Skin Test TB 2 Step Mantoux Skin Test 10/22/2023 0 6:20 pm EDT Pneumococcal Conjugate Vaccine (PCV13) 0 03/21/2012 12:00 am EST Pneumococcal Polysaccharide Vaccine (PPS V23) Pneumococcal Polysaccharide Vaccine (PPS V23) 06/12/2018 12:00 am EDT Pneumococcal Polysaccharide Vaccine (PPS V23) 02/21/2000 12:00 am EST SARS-COV-2 (COVID-19) 07/21/2020 12:00 a m EDT SARS-COV-2 (COVID-19) 06/23/2020 12:00 a m EDT Prevnar 20 Pneumococcal conjugate (PCV20 ) RSV, bivalent, protein subunit RSVpreF, diluent rec Influenza, high dose seasonal Influenza, high dose seasonal 02/14/2023 12:00 am EST COVID-19, mRNA, LNP-S, PF, 50 mcg/0.5 mL 03/16/2021 12:00 am EST COVID-19 vaccine, vector-nr, rS-Ad26, PF , 0.5 mL Social History
== END 2024-04-18 14:27 | disposition home or self-care (01) ==
PROVIDERS: PCP Internal Medicine; Visit Provider Internal Medicine
DX: E11.9 Type 2 diabetes mellitus without complications (principal); K74.60 Unspecified cirrhosis of liver; B20 Human immunodeficiency virus [HIV] disease; I63.9 Cerebral infarction, unspecified; C44.311 Basal cell carcinoma of skin of nose; H00.013 Hordeolum externum right eye, unspecified eyelid